=== PATIENT | male | born 1955 | race Caucasian/White ===

== ENCOUNTER 2018-07-03 11:38 | Outpatient (CLI) | payer BC, SELFPAY ==
--- NOTE | 2018-07-03 15:15 | DI.RAD_ITS ---
SYMPTOMS/DIAGNOSIS: CHEST PAIN MADE WORSE BY BREATHING, R07.1 CHEST X-RAY, TWO VIEWS: Comparison is 02/01/18. The heart size and pulmonary vasculature are within normal limits. There is now blunting of the left costophrenic angle on the posterior costophrenic sulcus, suggesting a small pleural effusion. The lungs are otherwise clear. No pneumothorax is identified. The bones are intact. Degenerative changes are seen in the spine. IMPRESSION: Findings suggestive of a tiny left pleural effusion.
[2018-07-03 16:18] LABS: Abs Immature Grans 0.02 k/cumm (0.0-0.09); Absolute Basophil Count 0.04 k/cumm (0.0-0.2); Absolute Eosinophil Count 0.34 k/cumm (0.0-0.7); Absolute Monocyte Count 1.35 k/cumm (0.11-0.7); Absolute Neutrophil Count 6.29 k/cumm (1.2-6.7); Basophils % 0.4; Eosinophils % 3.5; HCT 40.4 % (40.0-50.0); Immature Grans % 0.2; Lymphocytes % 18.3; Mean Corp. HGB Concentration 34.7 g/dL (32.0-36.0); Mean Corpuscular Hemoglobin 33.7 pg (27.0-33.0); Mean Corpuscular Volume 97.1 fL (80-95); Monocytes % 13.7; Neutrophils % 63.9; Platelet Count 343 x1000/uL (130-400); RBC 4.16 m/cumm (4.50-6.00); RBC Distribution Width 12.6 % (11.8-14.1); White Blood Cell Count 9.84 k/cumm (4.4-10.8)
[2018-07-03 19:01] LABS: ALT 37 U/L (12-78); AST 28 U/L (15-37); Albumin 3.4 g/dL (3.4-5.0); Alkaline Phosphatase 76 U/L (46-116); Anion Gap 10.4 mmol/L (3-11); BUN 10 mg/dL (7-18); Bilirubin, Total 0.5 mg/dL (0.2-1.0); C-Reactive Protein 5.94 mg/dL (0.0-0.3); CO2 25.6 mmol/L (21.0-32.0); Calcium 8.5 mg/dL (8.5-10.1); Chloride 94 mmol/L (98-107); Glucose 95 mg/dL (70-100); Potassium 4.7 mmol/L (3.5-5.1); Sodium 130 mmol/L (136-145); Total Protein 6.6 g/dL (6.4-8.2)
[2018-07-03 19:32] LABS: ESR 47 MM/HR (1-20)
== END 2018-07-03 11:58 ==
PROVIDERS: PCP Emergency Medicine; Visit Provider Emergency Medicine
DX: R07.1 Chest pain on breathing (principal); J90 Pleural effusion, not elsewhere classified; R53.83 Other fatigue
CPT/HCPCS: 36415; 80053; 85652; 71046; 85025; 86140